=== PATIENT | male | born 2000 | race Asian ===

== ENCOUNTER 2021-09-25 20:17 | Emergency (ER) | payer BC ==
[~2021-09-25] VITALS: Ht 177.8 cm; Wt 70.5 kg
[2021-09-25 20:22] VITALS: BP 131/78; TEMP 99
[2021-09-25 21:03] VITALS: PULSE 68
== END 2021-09-25 21:09 | disposition home or self-care (01) ==
LOC: COL.ER 20:17
DX: S90.561A Insect bite (nonvenomous), right ankle, initial encounter (principal); S90.562A Insect bite (nonvenomous), left ankle, initial encounter; W57.XXXA Bitten or stung by nonvenomous insect and other nonvenomous arthropods, initial encounter